=== PATIENT | female | born 1970 | race Caucasian/White ===

== ENCOUNTER 2017-01-09 09:47 | Emergency (ER) | payer SELFPAY ==
[~2017-01-09] VITALS: Ht 162.6 cm; Wt 93.0 kg
[2017-01-09 10:00] VITALS: BP 139/102
--- NOTE | 2017-01-09 10:21 | PHYS DOC ---
Past Medical History Past Medical History: Hypertension Past Surgical History: Appendectomy, Cholecystectomy, Tonsillectomy Additional Past Surgical Histo: KIDNEY STENTS Alcohol Use: None Drug Use: None Adult General Chief Complaint Chief Complaint: COUGH HPI HPI Patient is a 47 year old female with history of hypertension who presents today with a nonproductive cough for 10 weeks. Patient denies any fever. Denies any congestion. Denies any history of smoking. She states she currently does not take anything for her hypertension. Review of Systems Review of Systems Constitutional: See history of present illness Eyes: Denies change in visual acuity, redness, or eye pain [] HENT: Denies nasal congestion or sore throat [] Respiratory: cough Cardiovascular: No additional information not addressed in HPI [] GI: Denies abdominal pain, nausea, vomiting, bloody stools or diarrhea [] : Denies dysuria or hematuria [] Musculoskeletal: Denies back pain or joint pain [] Integument: Denies rash or skin lesions [] Neurologic: Denies headache, focal weakness or sensory changes [] Endocrine: Denies polyuria or polydipsia [] Current Medications Current Medications Current Medications Medications (Trade) Dose Ordered Sig/Chance Start Time Stop Time Status Last Admin Dose Admin Albuterol/ Ipratropium (Duoneb) 3 ml 1X ONCE 01/09/17 10:30 01/09/17 10:31 DC 01/09/17 10:30 3 ML Benzonatate (Tessalon Perle) 200 mg 1X ONCE 01/09/17 10:30 01/09/17 10:31 DC 01/09/17 10:38 200 MG Prednisone (Prednisone) 60 mg 1X ONCE 01/09/17 10:30 01/09/17 10:31 DC 01/09/17 10:38 60 MG Allergies Allergies Allergies Coded Allergies Type Severity Reaction Last Updated Verified No Known Drug Allergies 01/09/17 No Physical Exam Physical Exam Constitutional: Well developed, well nourished, no acute distress, non-toxic appearance. [] HENT: Normocephalic, atraumatic, bilateral external ears normal, oropharynx moist, no oral exudates, nose normal. [] Eyes: PERRLA, EOMI, conjunctiva normal, no discharge. [] Neck: Normal range of motion, no tenderness, supple, no stridor. [] Cardiovascular:Heart rate regular rhythm, no murmur [] Lungs & Thorax: Bilateral breath sounds clear to auscultation [] Abdomen: Bowel sounds normal, soft, no tenderness, no masses, no pulsatile masses. [] Skin: Warm, dry, no erythema, no rash. [] Back: No tenderness, no CVA tenderness. [] Extremities: No tenderness, no cyanosis, no clubbing, ROM intact, no edema. [] Neurologic: Alert and oriented X 3, normal motor function, normal sensory function, no focal deficits noted. [] Psychologic: Affect normal, judgement normal, mood normal. [] Current Patient Data Vital Signs Vital Signs Date Time Temp Pulse Resp B/P (MAP) Pulse Ox O2 Delivery O2 Flow Rate FiO2 01/09/17 10:30 98 01/09/17 10:00 98.6 113 22 Room Air 98.6 EKG EKG [] Radiology/Procedures Radiology/Procedures []PROCEDURE: CHEST PA & LATERAL Indication: Cough for 10 weeks. Time of exam 10:16 AM FINDINGS: The heart size is normal. The lungs are clear. No pleural effusion or pneumothorax is identified. The pulmonary vascularity is normal. IMPRESSION: No acute abnormality detected. DICTATED and SIGNED BY: GABRIELE COY MD DATE: 01/09/17 1027 CC: UDAY GONZALEZ APRN; NO PCP ~ Course & Med Decision Making Course & Med Decision Making Pertinent Labs and Imaging studies reviewed. (See chart for details) This is a 47-year-old female patient who presents today with a dry cough for 10 weeks. Chest x-ray interpreted by radiologist is negative for any acute findings. Patient's symptoms are probably from bronchitis. Patient was discharged with Tessalon Perles, prednisone, albuterol inhaler, Z-Valentin and Tussionex. Her blood pressure is 139/102. She has history of hypertension and currently not on any medication. Patient was encouraged to follow-up with her PCP this week. Dragon Disclaimer Dragon Disclaimer This electronic medical record was generated, in whole or in part, using a voice recognition dictation system. Departure Departure Impression: Primary Impression: Acute bronchitis Additional Impression: Hypertension Disposition: 01 HOME, SELF-CARE Condition: STABLE Referrals: NO PCP (PCP) follow up with your primary care doctor in 3-7 days Patient Instructions: Acute Bronchitis, Hypertension Additional Instructions: You were seen for bronchitis. Please use the prescribed medicines as ordered. Follow-up with the primary care doctor because her blood pressure was elevated and this cough is also continued for 10 weeks. This is a long period of time. We did put you on antibiotics. Finish them. Come back to the ED if symptoms worsen. Scripts Hydrocodone/Chlorphen Polis (HYDROCODONE-CHLORPHENIRAM SUSP) 5 Ml Isidra.er.12h 5 ML PO PRN Q12HR Y for COUGH, #80 ML 0 Refills Prov: UDAY GONZALEZ APRN 01/09/17 Azithromycin (ZITHROMAX) 250 Mg Tablet 1 PKG PO UD, #1 PKG Prov: UDAY GONZALEZ APRN 01/09/17 Albuterol Sulfate (Proair Respiclick) 90 Mcg Aer.pow.ba 1 PUFF IH PRN Q6HRS Y for SHORTNESS OF BREATH, #1 INHALER Prov: UDAY GONZALEZ APRN 01/09/17 Prednisone (PREDNISONE) 50 Mg Tablet 1 TAB PO DAILY, #4 TAB Prov: UDAY GONZALEZ APRN 01/09/17 Benzonatate (TESSALON PERLE) 100 Mg Capsule 1 CAP PO TID, #30 CAP Prov: UDAY GONZALEZ APRN 01/09/17 Problem Qualifiers Primary Impression: Acute bronchitis Bronchitis organism: unspecified organism Qualified Codes: J20.9 - Acute bronchitis, unspecified Additional Impression: Hypertension Hypertension type: unspecified secondary hypertension Qualified Codes: I15.9 - Secondary hypertension, unspecified UDAY GONZALEZ APRN Jan 09, 2017 10:20
[2017-01-09] MEDS ORDERED: BENZONATATE 100 MG CAPSULE. PO ONE (10:30)
[2017-01-09] MEDS ORDERED: IPRATRPIUM/ALBUTEROL 0.5/2.5MG 3 ML NEBU. NEB ONE (10:30)
[2017-01-09] MEDS ORDERED: predniSONE 20 MG TABLET PO ONE (10:30)
--- NOTE | 2017-01-09 10:30 | RAD ---
Indication: Cough for 10 weeks. Time of exam 10:16 AM FINDINGS: The heart size is normal. The lungs are clear. No pleural effusion or pneumothorax is identified. The pulmonary vascularity is normal. IMPRESSION: No acute abnormality detected.
[2017-01-09] MEDS ORDERED: PRED50TA PO (11:07)
[2017-01-09] MEDS ORDERED: PROAIR RESPICL90 MCG IH (11:07)
[2017-01-09] MEDS ORDERED: BENZ100C PO (11:07)
[2017-01-09] MEDS ORDERED: AZIT250T PO (11:07)
[2017-01-09] MEDS ORDERED: HYDR5SUS PO (11:07)
== END 2017-01-09 11:14 | disposition home or self-care (01) ==
LOC: ER 09:47
DX: J20.9 Acute bronchitis, unspecified (principal); I10 Essential (primary) hypertension; Z90.49 Acquired absence of other specified parts of digestive tract
CPT/HCPCS: 71020; 94640; 99284; J7512; J7620